=== PATIENT | male | born 1975 ===

== ENCOUNTER 2018-07-17 18:56 | Emergency (ER) | payer SELFPAY ==
[2018-07-17 19:18] VITALS: RESP 16
--- NOTE | 2018-07-17 20:25 | ED PDOC ---
HPI: Influenza Time Seen by Provider: 07/17/18 19:54 Chief Complaint: Flu-like Symptoms Chief Complaint (Provider): Flu-like Symptoms History Per: Patient Exam Limitations: no limitations Onset/Duration Of Symptoms: Days Symptoms include: fever, headache, sore throat, cough, vomiting Sick Contacts (Context): Family Member(s) Additional complaint(s):: 42 y/o male presents to the ED for an evaluation of worsening cough and fever associated with headache, bilateral pressure in his ears and nasal drainage onset for 2 weeks. He reports he vomited today morning. As per daughter, she states she was sick but she has recovered. Otherwise, he denies nausea, ear pain, shortness of breath or diarrhea. PMD: no family provider Past Medical History Reviewed: Historical Data, Nursing Documentation, Vital Signs Vital Signs: Last Vital Signs Temp 101.2 F H 07/17/18 19:16 Pulse 118 H 07/17/18 19:16 Resp 16 07/17/18 19:16 BP 168/93 H 07/17/18 19:16 Pulse Ox 98 07/17/18 19:16 - Medical History PMH: No Chronic Diseases - Family History Family History: States: Unknown Family Hx - Home Medications Home Medications: Ambulatory Orders Medication Instructions Recorded Oseltamivir Phosphate [Tamiflu] 75 mg PO BID #10 capsule 07/17/18 - Allergies Allergies/Adverse Reactions: Allergies Allergy/AdvReac Type Severity Reaction Status Date / Time No Known Allergies Allergy Verified 07/17/18 19:16 Review of Systems ROS Statement: Except As Marked, All Systems Reviewed And Found Negative Constitutional: Positive for: Fever. Negative for: Chills ENT: Positive for: Nose Discharge. Negative for: Ear Pain Respiratory: Positive for: Cough. Negative for: Shortness of Breath Gastrointestinal: Positive for: Vomiting. Negative for: Nausea, Abdominal Pain, Diarrhea Skin: Negative for: Rash Neurological: Positive for: Headache. Negative for: Weakness, Numbness Physical Exam - Reviewed Nursing Documentation Reviewed: Yes Vital Signs Reviewed: Yes - Physical Exam Appears: Positive for: Well, Non-toxic, No Acute Distress Head Exam: Positive for: ATRAUMATIC, NORMAL INSPECTION, NORMOCEPHALIC Skin: Positive for: Normal Color, Warm, Dry. Negative for: Rash Eye Exam: Positive for: EOMI, Normal appearance, PERRL ENT: Positive for: TM Is/Are (intact, light-reflection and landmarks visible), Pharyngeal Erythema, Other (mild enlarged nodes +1). Negative for: Tonsillar Exudate, Tonsillar Swelling Neck: Positive for: Normal, Painless ROM, Supple. Negative for: Decreased ROM Cardiovascular/Chest: Positive for: Regular Rate, Rhythm. Negative for: Murmur Respiratory: Positive for: Normal Breath Sounds. Negative for: Decreased Breath Sounds, Wheezing, Respiratory Distress Neurologic/Psych: Positive for: Alert, Oriented (x3). Negative for: Motor/Sensory Deficits Medical Decision Making Medical Decision Making: Time: 2020 Plan: Motrin 600mg Acetaminophen 650mg Influenza A B Rapid strep Reevaluation Influenza negative Strep negative Will tx with tamiflu based on cliical signs ----- Scribe Attestation: Documented by Pacheco Walker, acting as a scribe for Aditya Blackwell PA-C Provider Scribe Attestation: All medical record entries made by the Scribe were at my direction and personally dictated by me. I have reviewed the chart and agree that the record accurately reflects my personal performance of the history, physical exam, medical decision making, and the department course for this patient. I have also personally directed, reviewed, and agree with the discharge instructions and disposition. - ECG O2 Sat by Pulse Oximetry: 98 Disposition - Clinical Impression Clinical Impression: Influenza-like symptoms - Patient ED Disposition Is Patient to be Admitted: No Doctor Will See Patient In The: Office Counseled Patient/Family Regarding: Studies Performed, Diagnosis, Rx Given - Disposition Disposition: Routine/Home Disposition Time: 23:20 Condition: STABLE Prescriptions: Oseltamivir Phosphate [Tamiflu] 75 mg PO BID #10 capsule Forms: [employer] ([place])
[2018-07-17 22:32] VITALS: TEMP 98.7
[2018-07-17 22:35] VITALS: BP 158/86; PULSE 95
[2018-07-17 23:22] VITALS: O2SAT 98
== END 2018-07-17 23:25 | disposition home or self-care (01) ==
LOC: H.ER 18:56
DX: J11.1 Influenza due to unidentified influenza virus with other respiratory manifestations (principal)